=== PATIENT | male | born 1990 | race American Indian/Alaskan Native ===

== ENCOUNTER 2020-01-27 20:40 | Emergency (ER) | payer SELFPAY ==
--- NOTE | 2020-01-27 22:12 | Emergency Department Report ---
Blank Doc - Documentation Documentation: 29-year-old male that presents with CP. Denies any SOB. This initial assessment/diagnostic orders/clinical plan/treatment(s) is/are subject to change based on patient's health status, clinical progression and re- assessment by fellow clinical providers in the ED. Further treatment and workup at subsequent clinical providers discretion. Patient/guardians urged not to elope from the ED as their condition may be serious if not clinically assessed and managed. Initial orders include: 1- Patient sent to [facility] for further evaluation and treatment 2- EKG 3- CXR
[2020-01-28] MEDS ORDERED: KETOROLAC 60 MG/2 ML INJ IM ONE (00:28)
--- NOTE | 2020-01-28 01:35 | XRay Report ---
CHEST 2 VIEWS INDICATION / CLINICAL INFORMATION: cp, sternal pain. COMPARISON: None available. FINDINGS: SUPPORT DEVICES: None. HEART / MEDIASTINUM: No significant abnormality. LUNGS / PLEURA: No significant pulmonary or pleural abnormality. No pneumothorax. ADDITIONAL FINDINGS: No significant additional findings. IMPRESSION: 1. No acute findings. Signer Name: Kedar Mendoza MD Signed: 01/28/2020 1:31 AM Workstation Name: [email or web address]
--- NOTE | 2020-01-28 01:50 | Emergency Department Report ---
ED Chest Pain HPI - General Chief Complaint: Chest Pain Stated Complaint: CHEST PAIN Time Seen by Provider: 01/27/20 22:11 Source: patient Mode of arrival: Ambulatory Limitations: No Limitations - History of Present Illness Initial Comments: 29-year male with no significant past medical history presents the hospital planing of sternal chest pain for the past 4 days. Symptoms started after working out. Patient has not worked out in several months because he had to take a break due to a toenail injury. Patient just started exercising just prior to symptom onset. Patient complains of midsternal pain that is rated 6/10 in intensity and intermittent. Pain is worse with stretching his chest wall and movement. Today he had several episodes of nausea vomiting and was concerned for possible indigestion/gas. He took Pepcid without relief. He denies shortness of breath, smoking, family history of CAD, hypertension, diabetes, elevated cholesterol, calf tenderness, leg edema, history of PE/DVT. He has not taken any medications for pain Severity scale (0 -10): 6 - Related Data Home Medications Medication Instructions Recorded Confirmed Last Taken Terbinafine HCl [Lamisil] 125 ml TP 01/28/20 1 Day Ago ~01/27/20 Previous Rx's Medication Instructions Recorded Last Taken Type Ibuprofen [Motrin] 800 mg PO Q8HR PRN #20 tablet 01/28/20 Unknown Rx Allergies Allergy/AdvReac Type Severity Reaction Status Date / Time No Known Allergies Allergy Verified 01/28/20 00:32 Heart Score - HEART Score History: Slightly suspicious EKG: Normal Age: < 45 Risk factors: 1-2 risk factors (weight) Troponin: < normal limit (no performed) HEART Score: 1 ED Review of Systems ROS: Stated complaint: CHEST PAIN Other details as noted in HPI Comment: All other systems reviewed and negative ED Past Medical Hx - Social History Smoking Status: Never Smoker Substance Use Type: None - Medications Home Medications: Home Medications Medication Instructions Recorded Confirmed Last Taken Type Ibuprofen [Motrin] 800 mg PO Q8HR PRN #20 tablet 01/28/20 Unknown Rx Terbinafine HCl [Lamisil] 125 ml TP 01/28/20 1 Day Ago History ~01/27/20 ED Physical Exam - General Limitations: No Limitations - Other Other exam information: General: No acute distress Head: Atraumatic Eyes: normal appearance ENT: Moist mucous membranes Neck: Normal appearance, no midline tenderness Chest: Clear to auscultation bilaterally, sternal pain reproducible with stretching chest wall CV: Regular rate and rhythm Abdomen: Soft, normal bowel sounds, nontender, nondistended, no rebound or guarding Back: Normal inspection Extremity: Normal inspection, full range of motion, no calf tenderness or leg edema Neuro: Alert O x 3, no facial asymmetry, speech clear, no gross motor sensory deficit Psych: Appropriate behavior Skin: No rash ED Course Vital Signs 01/27/20 01/28/20 22:10 00:46 Temperature 98.2 F Pulse Rate 81 Respiratory 16 16 Rate Blood Pressure 148/94 O2 Sat by Pulse 99 Oximetry DIVINA score - Divina Score Age > 65: (0) No Aspirin use within the Past 7 Days: (0) No 3 or more CAD Risk Factors: (0) No 2 or more Angina events in past 24 hrs: (0) No Known CAD with more than 50% Stenosis: (0) No Elevated Cardiac Markers: (0) No (Not performed) ST Deviation Greater than 0.5mm: (0) No DIVINA Score: 0 ED Medical Decision Making - EKG Data -: EKG Interpreted by [facility] EKG shows normal: sinus rhythm, ST-T waves (No STEMI) Rate: bradycardia (55) - EKG Data 01/28/20 01:50 Repeat EKG at 1:10 AM sinus bradycardia rate 54 without acute ischemic changes - Radiology Data Radiology results: report reviewed CHEST 2 VIEWS INDICATION / CLINICAL INFORMATION: cp, sternal pain. COMPARISON: None available. FINDINGS: SUPPORT DEVICES: None. HEART / MEDIASTINUM: No significant abnormality. LUNGS / PLEURA: No significant pulmonary or pleural abnormality. No pneumothorax. ADDITIONAL FINDINGS: No significant additional findings. IMPRESSION: 1. No acute findings. - Medical Decision Making Patient likely has costochondritis secondary to exercising earlier this week. Patient is pain-free after receiving Toradol IM. EKG normal without ischemic changes x2. Chest x-ray negative. Patient be discharged with outpatient follow-up - Differential Diagnosis Costochondritis, chest wall strain, pericarditis, MA Critical Care Time: No Critical care attestation.: If time is entered above; I have spent that time in minutes in the direct care of this critically ill patient, excluding procedure time. ED Disposition Clinical Impression: Costochondritis, acute Disposition: [id number] TO HOME OR SELFCARE Is pt being admited?: No Does the pt Need Aspirin: No Condition: Stable Instructions: Costochondritis (ED) Additional Instructions: Take the medication as prescribed. Follow-up with your doctor or doctor/clinic provided. Return if symptoms worsen as indicated by your discharge instructions. Prescriptions: Ibuprofen [Motrin] 800 mg PO Q8HR PRN #20 tablet PRN Reason: Pain , Severe (7-10) Referrals: PATRIC NULL MD [Staff Physician] - 3-5 Days [facility] [Provider Group] - 3-5 Days Time of Disposition: 01:49
[2020-01-28 02:16] VITALS: BP 139/90
== END 2020-01-28 02:15 | disposition home or self-care (01) ==
LOC: ED 20:40
DX: M94.0 Chondrocostal junction syndrome [Tietze] (principal); Z79.899 Other long term (current) drug therapy
CPT/HCPCS: 71046; 93005; 93010; 96372; 99283; J1885